=== PATIENT | male | born 1945 ===

== ENCOUNTER 2024-03-07 13:29 | Outpatient (OUT) | payer MEDICARE, OTHER, SELFPAY ==
--- NOTE | 2024-03-07 | XR_ITS ---
[address] [address] Patient Name: LUC WALLIS MRN: [id number] date: 1945 Sex: M Assigned Patient Location: Current Patient Location: Accession/Order Number: [id number] Exam Date: 03/07/2024 13:40 Report Date: 03/07/2024 14:28 At the request of: AYLEEN GRACE Procedure: XR ankle DAVID min 3V EXAMINATION: XR ankle DAVID min 3V, XR foot DAVID min 3V HISTORY: BILATERAL ANKLE PAIN COMPARISON: 01/24/2024 FINDINGS: RIGHT FINDINGS: BONES: No acute fracture or dislocation. Moderate to severe diffuse degenerative changes most significant in the midfoot with areas joint collapse with endplate sclerosis with bony remodeling. Medial subluxation of the proximal phalanges in relation to the metatarsals most significant along the first and second toes. There is midfoot forefoot valgus moderate enthesopathic spurring of the calcaneus. Asymmetric moderate to severe narrowing of the medial tibiotalar joint SOFT TISSUES: Mild diffuse soft tissue swelling. Vascular calcifications OTHER: Negative. LEFT FINDINGS: BONES: No acute fracture or dislocation. Moderate to severe degenerative changes with joint space narrowing and marginal osteophyte formation most significant in the midfoot. Moderate anterior tibiotalar joint osteoarthropathy. Moderate enthesopathic spurring of the calcaneus. Midfoot valgus . 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 No visible soft tissue swelling. OTHER: Negative. XR/XR ankle DAVID min 3V IMPRESSION: RIGHT CONCLUSION: Moderate to severe degenerative changes LEFT CONCLUSION: Moderate to severe degenerative changes Electronically authenticated by: DANIA BLANKENSHIP Date: 03/07/2024 14:28
--- NOTE | 2024-03-07 | XR_ITS ---
[address] [address] Patient Name: LUC WALLIS MRN: [id number] date: 1945 Sex: M Assigned Patient Location: Current Patient Location: Accession/Order Number: [id number] Exam Date: 03/07/2024 13:40 Report Date: 03/07/2024 14:28 At the request of: AYLEEN GRACE Procedure: XR foot DAVID min 3V EXAMINATION: XR ankle DAVID min 3V, XR foot DAVID min 3V HISTORY: BILATERAL ANKLE PAIN COMPARISON: 01/24/2024 FINDINGS: RIGHT FINDINGS: BONES: No acute fracture or dislocation. Moderate to severe diffuse degenerative changes most significant in the midfoot with areas joint collapse with endplate sclerosis with bony remodeling. Medial subluxation of the proximal phalanges in relation to the metatarsals most significant along the first and second toes. There is midfoot forefoot valgus moderate enthesopathic spurring of the calcaneus. Asymmetric moderate to severe narrowing of the medial tibiotalar joint SOFT TISSUES: Mild diffuse soft tissue swelling. Vascular calcifications OTHER: Negative. LEFT FINDINGS: BONES: No acute fracture or dislocation. Moderate to severe degenerative changes with joint space narrowing and marginal osteophyte formation most significant in the midfoot. Moderate anterior tibiotalar joint osteoarthropathy. Moderate enthesopathic spurring of the calcaneus. Midfoot valgus . Severe osteoarthritis of the tibiotalar joint with [id number] articulation SOFT TISSUES: Negative. No visible soft tissue swelling. OTHER: Negative. XR/XR foot DAVID min 3V IMPRESSION: RIGHT CONCLUSION: Moderate to severe degenerative changes LEFT CONCLUSION: Moderate to severe degenerative changes Electronically authenticated by: DANIA BLANKENSHIP Date: 03/07/2024 14:28
== END 2024-03-07 13:30 | disposition home or self-care (01) ==
PROVIDERS: Visit Provider Podiatrist Foot & Ankle Surgery
DX: M25.571 Pain in right ankle and joints of right foot (principal); M25.572 Pain in left ankle and joints of left foot
CPT/HCPCS: 73610; 73630